=== PATIENT | female | born 1975 | race Caucasian/White ===

== ENCOUNTER 2016-03-25 20:16 | Emergency (ER) | payer BC, OTHER ==
[~2016-03-25] VITALS: Ht 167.6 cm; Wt 86.4 kg
[~2016-03-25 20:16] MED LIST: ADIPEX-P37.5 M1 PO; ADIPEX-P37.5 MG; AMBIEN 5MG TABLE5 MG PO; BELVIQ; CALCIUM 500500 M2 PO; CYMBALTA 30MG30 MG PO; CYMBALTA 60MG60 MG PO; DIAST10; ENDOMETRIN100 MG; EPI-PEN1 MG/ML MR; ESTRACE2 MG PO; ESTROGEN COMPOUND; ESTROGEN GEL TOP; FASTIN30 MG PO; FETZIMA PO; FIORICET 325 MG1 TA1 PO; FLEXERIL10 MG PO; GLUCOPHAGE1000 MG PO; GLUCOPHAGE500 MG/TAB PO; IBREN600 MG PO; KELP PO; LAMICTAL 100MG100 MG PO; LAMICTAL150 MG PO; LAMICTAL200 MG PO; LEXAPRO 10MG10 MG PO; LINZESS145CAP PO; LORTAB 5/500 501 TAB PO; MOTRIN 600600 MG/TAB PO; NEXIUM 40MG40 MG PO; NO HOME MEDICATIONS; NORCO 325 MG-7.1 TAB PO; PENTASA PO; PEPCID 20MG TAB20 MG PO; PERCOCET 325 MG1 TA2 PO; PHENERGAN 25 TA25 MG PO; PHENERGAN25 MG RC; PREDNISONE20 MG PO; PREMARIN 1.251.25 MG PO; PREVPAC; PRIL40; PROVERA 10MG10 MG PO; TOPAMAX 25MG25 M1 PO; TOPAMAX50 MG; VALIUM 10MG10 MG/TAB PO; VITAMIN D1000 IU PO; ZOFRAN ODT4 MG PO; [UNRECOGNIZED DRUG - SUPPLY] PO
[2016-03-25] MEDS ORDERED: AMBIEN 10MG10 MG PO (20:30)
[2016-03-25] MEDS ORDERED: REXULTI2 MG PO (20:30)
[2016-03-25 20:42] LABS: BASO # 0.1 (0.0-0.2); BASO % 0.4 % (0.0-2.0); EOS # 0.2 (0.0-0.7); EOS % 1.8 % (0-4.0); GRAN # 7.1 (1.4-6.5); GRAN % 63.4 % (42.2-75.2); HEMATOCRIT 37.2 % (37.0-47.0); HEMOGLOBIN 12.1 g/dl (12.5-16.0); LYMPH # 3.3 (1.2-3.4); LYMPH % 29.7 % (20.0-51.0); MEAN CELL VOLUME 90 fl (80.0-100.0); MEAN CORPUSCULAR HEMOGLOBIN 29 pg (27.0-31.0); MEAN CORPUSCULAR HGB CONC 33 g/dl (33.0-37.0); MEAN PLATELET VOLUME 8.8 fl (7.4-10.4); MONO # 0.5 (0.1-0.6); MONO % 4.4 % (1.7-9.3); PLATELET COUNT 420 K/mm3 (130-400); RED BLOOD COUNT 4.14 M/mm3 (4.10-5.30); REDCELL DISTRIBUTION WIDTH-CV 14.3 % (11.5-14.5); WHITE BLOOD COUNT 11.2 K/mm3 (4.8-10.8)
[2016-03-25 20:52] LABS: ADJUSTED CALCIUM 9.4 mg/dL (8.4-10.2); ALANINE AMINOTRANSFERASE 58 U/L (9-52); ALBUMIN 4.5 gm/dL (3.5-5.0); ALKALINE PHOSPHATASE 85 U/L (50-136); ANION GAP 16 mmol/L (7-16); BILIRUBIN,TOTAL 0.6 mg/dL (0.0-1.0); BLOOD UREA NITROGEN 13 mg/dL (7-17); CALCIUM 9.8 mg/dL (8.4-10.2); CARBON DIOXIDE 24 mmol/L (22-30); CHLORIDE 101 mmol/L (98-107); CREATININE, serum 0.72 mg/dL (0.52-1.25); GLUCOSE 150 mg/dL (74-106); INR 1.1 (0.8-3.0); POTASSIUM 3.7 mmol/L (3.4-5.0); PROTHROMBIN TIME 12.6 SECONDS (9.7-12.8); SODIUM 141 mmol/L (137-145); TOTAL PROTEIN 7.6 gm/dL (6.4-8.2)
[2016-03-25 20:55] LABS: PARTIAL THROMBOPLASTIN TIME 31.2 SECONDS (26.0-37.0)
[2016-03-25 21:06] LABS: TROPONIN-I < 0.012 ng/mL (0.000-0.034)
[2016-03-25 22:39] VITALS: BP 119/75; PULSE 69; TEMP 96.9
== END 2016-03-25 22:39 | disposition home or self-care (01) ==
LOC: COL.ER 20:16
PROVIDERS: Family Medicine
DX: R07.89 Other chest pain (principal); Z82.49 Family history of ischemic heart disease and other diseases of the circulatory system
CPT/HCPCS: J1885

== ENCOUNTER → 2016-05-11 | Outpatient (CLI) | payer BC, OTHER ==
[~2016-05-11] MED LIST changes: +AMBIEN 10MG10 MG PO; +REXULTI2 MG PO
== END ==
LOC: BHSO 15:49
DX: F41.1 Generalized anxiety disorder (principal)

== ENCOUNTER → 2016-07-30 | Outpatient (CLI) | payer BC | LOC: BHSO 12:52 | DX: F31.73 Bipolar disorder, in partial remission, most recent episode manic (principal) ==

== ENCOUNTER → 2017-01-05 | Outpatient (CLI) | payer BC, OTHER | LOC: BHSO 14:43 | DX: F41.1 Generalized anxiety disorder (principal) ==

== ENCOUNTER 2017-02-01 07:43 | Observation (INO) | payer BC ==
[2017-02-01] VITALS (8 sets, daily range): BP systolic 105–134; BP diastolic 52–80; PULSE 78–90; TEMP 97.7–98.8
[~2017-02-01] VITALS: Ht 167.6 cm; Wt 97.2 kg
[~2017-02-01 07:43] MED LIST changes: +CARAFATE 1GM1 G PO; +NORCO 325 MG-51 TAB PO
[2017-02-01] MEDS ORDERED: WELLBUTRIN 75MG75 MG PO (08:25)
[2017-02-01] MEDS ORDERED: TRULICITY0.75 MG/0. SQ (08:26)
[2017-02-01] MEDS ORDERED: PERCOCET 325 MG1 TA2 PO (11:27)
[2017-02-01] MEDS ORDERED: MOTRIN 600600 MG/TAB PO (11:28)
[2017-02-01] MEDS ORDERED: COLACE 100100 MG/CAP PO (11:28)
== END 2017-02-01 19:58 | disposition home or self-care (01) ==
LOC: SDCO 07:43 → SURG 17:00
DX: K76.0 Fatty (change of) liver, not elsewhere classified (principal); K82.8 Other specified diseases of gallbladder; E78.00 Pure hypercholesterolemia, unspecified; E11.9 Type 2 diabetes mellitus without complications; G47.33 Obstructive sleep apnea (adult) (pediatric); K21.9 Gastro-esophageal reflux disease without esophagitis; G43.909 Migraine, unspecified, not intractable, without status migrainosus; F32.9 Major depressive disorder, single episode, unspecified; F41.9 Anxiety disorder, unspecified; F43.10 Post-traumatic stress disorder, unspecified; Z90.712 Acquired absence of cervix with remaining uterus; Z90.722 Acquired absence of ovaries, bilateral; Z83.3 Family history of diabetes mellitus; Z82.49 Family history of ischemic heart disease and other diseases of the circulatory system
CPT/HCPCS: G0378; G0379; J0690; J1100; J1885; J2405; J2550; J2704; J2710; J3010; J7030; Q9967

== ENCOUNTER → 2017-02-24 | Outpatient (CLI) | payer BC ==
[~2017-02-24] MED LIST changes: +COLACE 100100 MG/CAP PO; +TRULICITY0.75 MG/0. SQ; +WELLBUTRIN 75MG75 MG PO
== END ==
LOC: BHSO 15:49
DX: F41.1 Generalized anxiety disorder (principal)

== ENCOUNTER 2017-07-05 19:55 | Emergency (ER) | payer BC ==
[~2017-07-05] VITALS: Ht 167.6 cm; Wt 87.7 kg
[2017-07-05 20:08] VITALS: TEMP 99.2
[2017-07-05 20:42] VITALS: BP 126/87; PULSE 84
== END 2017-07-05 21:12 | disposition home or self-care (01) ==
LOC: COL.ER 19:55
DX: R04.0 Epistaxis (principal); F32.9 Major depressive disorder, single episode, unspecified

== ENCOUNTER 2018-01-24 18:55 | Emergency (ER) | payer BC ==
[2018-01-25] MEDS ORDERED: ZOFRAN ODT4 MG PO (21:02)
== END 2018-01-24 19:17 | disposition left against medical advice (07) ==
LOC: COL.ER 18:55
DX: Z72.9 Problem related to lifestyle, unspecified (principal)

== ENCOUNTER 2018-01-25 18:12 | Emergency (ER) | payer BC ==
[~2018-01-25] VITALS: Ht 167.6 cm; Wt 79.5 kg
[2018-01-25 18:22] VITALS: TEMP 98.1
[2018-01-25 19:12] LABS: BASO % 0.1 % (0.0-2.0); EOS # 0.2 (0.0-0.7); EOS % 1.6 % (0-4.0); GRAN % 73.3 % (42.2-75.2); HEMOGLOBIN 14.7 g/dl (12.5-16.0); LYMPH # 2.5 (1.2-3.4); LYMPH % 18.3 % (20.0-51.0); MEAN CELL VOLUME 89 fl (80.0-100.0); MEAN CORPUSCULAR HEMOGLOBIN 30 pg (27.0-31.0); MEAN CORPUSCULAR HGB CONC 33 g/dl (33.0-37.0); MEAN PLATELET VOLUME 8.4 fl (7.4-10.4); MONO # 0.9 (0.1-0.6); MONO % 6.2 % (1.7-9.3); PLATELET COUNT 530 K/mm3 (130-400); RED BLOOD COUNT 4.96 M/mm3 (4.10-5.30); REDCELL DISTRIBUTION WIDTH-CV 13.3 % (11.5-14.5)
[2018-01-25 19:24] LABS: ALBUMIN 4.6 gm/dL (3.5-5.0); BILIRUBIN,TOTAL 0.5 mg/dL (0.0-1.0); C-REACTIVE PROTEIN 2.8 mg/dL (0.0-0.9); CREATININE, serum 0.76 mg/dL (0.52-1.25); POTASSIUM 3.3 mmol/L (3.4-5.0); TOTAL PROTEIN 7.6 gm/dL (6.4-8.2)
[2018-01-25 19:39] LABS: COLLECTION METHOD CLEAN CATCH
[2018-01-25 19:51] LABS: PH 6 (5-8); SQUAMOUS EPITHELIAL 0-2 /hpf; URINE APPEARANCE Hazy; URINE BACTERIA Rare /hpf; URINE BILIRUBIN Negative (NEGATIVE); URINE BLOOD Negative (NEGATIVE); URINE COLOR Yellow; URINE GLUCOSE Negative (NEGATIVE); URINE KETONE Negative (NEGATIVE); URINE LEUKOCYTE ESTERASE Negative (NEGATIVE); URINE NITRATE Negative (NEGATIVE); URINE PROTEIN(semi-quant) Negative (NEGATIVE); URINE RBC 0-2 /hpf; URINE UROBILINOGEN Negative (NEGATIVE)
[2018-01-25] MEDS ORDERED: ZOFRAN ODT4 MG PO (21:02)
[2018-01-25 21:16] VITALS: BP 118/82; PULSE 94
== END 2018-01-25 21:23 | disposition home or self-care (01) ==
LOC: COL.ER 18:12
PROVIDERS: Physician Assistant
DX: R10.11 Right upper quadrant pain (principal); R11.2 Nausea with vomiting, unspecified; R19.7 Diarrhea, unspecified; E11.9 Type 2 diabetes mellitus without complications; Z90.49 Acquired absence of other specified parts of digestive tract; K58.9 Irritable bowel syndrome, unspecified
CPT/HCPCS: J1885; J2405; J7030; Q9967

== ENCOUNTER → 2018-01-26 | Outpatient (CLI) | payer BC ==
[~2018-01-26] MED LIST changes: +PRILOSEC 20MG20 MG PO
== END ==
LOC: COL.LAB 20:20
DX: Z01.89 Encounter for other specified special examinations (principal)

== ENCOUNTER 2018-02-01 00:16 | Emergency (ER) | payer BC ==
[~2018-02-01] VITALS: Ht 167.6 cm; Wt 77.3 kg
[~2018-02-01 00:16] MED LIST changes: -PRILOSEC 20MG20 MG PO
[2018-02-01 00:19] VITALS: TEMP 97.4
[2018-02-01 00:43] LABS: BASO # 0.1 (0.0-0.2); BASO % 0.5 % (0.0-2.0); EOS % 6.2 % (0-4.0); GRAN # 11.4 (1.4-6.5); HEMATOCRIT 44.3 % (37.0-47.0); LYMPH % 18.2 % (20.0-51.0); MEAN CELL VOLUME 89 fl (80.0-100.0); MEAN CORPUSCULAR HEMOGLOBIN 30 pg (27.0-31.0); MEAN CORPUSCULAR HGB CONC 34 g/dl (33.0-37.0); MEAN PLATELET VOLUME 8.6 fl (7.4-10.4); MONO # 0.8 (0.1-0.6); MONO % 4.8 % (1.7-9.3); PLATELET COUNT 530 K/mm3 (130-400); REDCELL DISTRIBUTION WIDTH-CV 13.2 % (11.5-14.5)
[2018-02-01 00:54] LABS: ALBUMIN 4.7 gm/dL (3.5-5.0); BILIRUBIN,TOTAL 0.4 mg/dL (0.0-1.0); CALCIUM 9.9 mg/dL (8.4-10.2); CREATININE, serum 0.81 mg/dL (0.52-1.25); POTASSIUM 4.5 mmol/L (3.4-5.0); TOTAL PROTEIN 7.8 gm/dL (6.4-8.2)
[2018-02-01] MEDS ORDERED: PRILOSEC 20MG20 MG PO (01:56)
[2018-02-01] MEDS ORDERED: ZOFRAN ODT4 MG PO (01:56)
[2018-02-01 02:55] VITALS: BP 142/98; PULSE 88
== END 2018-02-01 02:55 | disposition home or self-care (01) ==
LOC: COL.ER 00:16
PROVIDERS: Physician Assistant
DX: K21.9 Gastro-esophageal reflux disease without esophagitis (principal); K50.90 Crohn's disease, unspecified, without complications; D72.1 Eosinophilia; Z98.890 Other specified postprocedural states
CPT/HCPCS: J2270; J2405; J2550; J7030; Q9967

== ENCOUNTER → 2018-03-02 | Outpatient (CLI) | payer BC ==
[~2018-03-02] MED LIST changes: +PRILOSEC 20MG20 MG PO
== END ==
LOC: COL.RAD 07:08
DX: K21.9 Gastro-esophageal reflux disease without esophagitis (principal); A04.8 Other specified bacterial intestinal infections
CPT/HCPCS: A9541

== ENCOUNTER 2018-03-22 11:03 | Emergency (ER) | payer BC ==
[~2018-03-22] VITALS: Ht 167.6 cm; Wt 79.5 kg
[2018-03-22 11:11] VITALS: BP 114/60; TEMP 97.4
[2018-03-22 12:32] VITALS: PULSE 74
== END 2018-03-22 12:33 | disposition home or self-care (01) ==
LOC: COL.ER 11:03
DX: G43.909 Migraine, unspecified, not intractable, without status migrainosus (principal); F41.9 Anxiety disorder, unspecified; Z90.49 Acquired absence of other specified parts of digestive tract; Z90.710 Acquired absence of both cervix and uterus; Z98.890 Other specified postprocedural states; Z98.51 Tubal ligation status
CPT/HCPCS: J1200; J1885; J2765; J7030

== ENCOUNTER 2019-04-09 09:01 | Outpatient (CLI) | payer BC ==
[2019-04-09] VITALS (8 sets, daily range): BP systolic 108–122; BP diastolic 62–81; PULSE 66–82
[~2019-04-09] VITALS: Ht 167.6 cm; Wt 81.2 kg
[~2019-04-09 09:01] MED LIST changes: +CRESTOR 10MG10 MG PO; +TRULICITY1.5 MG/0.5 SQ; +VITAMIN D31000 IU PO; +WELLBUTRIN XL300 M1 PO
--- NOTE | 2019-04-09 12:25 | NUR ---
Discharge instructions gien to pt.Pt verbalizes understanding.Pt escorted out by this nurse.
[2019-04-09 12:58] LABS: GLUCOSE,CSF 63 mg/dL (40-70); TOTAL PROTEIN,CSF 37 mg/dL (15-45)
[2019-04-09 13:08] LABS: CSF APPEARANCE CLEAR; CSF COLOR COLORLESS
[2019-04-09 13:09] LABS: CSF MONONUCLEAR 100 % (70-100); CSF POLYMORPHONUCLEAR 0 % (0-6); CSF RBC 2 /mm3 (0-0)
== END 2019-04-09 13:44 | disposition home or self-care (01) ==
LOC: COL.RAD 09:01
PROVIDERS: Psychiatry & Neurology Neurology
DX: G37.9 Demyelinating disease of central nervous system, unspecified (principal); R93.89 Abnormal findings on diagnostic imaging of other specified body structures

== ENCOUNTER → 2019-04-11 | Emergency (ER) | payer BC ==
[~2019-04-11] VITALS: Ht 167.6 cm; Wt 81.8 kg
[2019-04-11 20:11] VITALS: BP 114/55; PULSE 88; TEMP 98.3
== END ==
LOC: COL.ER 19:19
DX: R51 Headache (principal); R11.0 Nausea

== ENCOUNTER 2019-04-18 18:31 | Emergency (ER) | payer BC ==
[~2019-04-18] VITALS: Ht 167.6 cm; Wt 81.8 kg
[2019-04-18 18:39] VITALS: TEMP 98.6
[2019-04-18 19:18] LABS: BASO % 0.5 % (0.0-2.0); EOS # 0.3 (0.0-0.7); GRAN # 5.2 (1.4-6.5); GRAN % 60.2 % (42.2-75.2); HEMATOCRIT 37.1 % (37.0-47.0); HEMOGLOBIN 12.3 g/dl (12.5-16.0); LYMPH # 2.6 (1.2-3.4); LYMPH % 29.9 % (20.0-51.0); MEAN CELL VOLUME 89 fl (80.0-100.0); MEAN CORPUSCULAR HEMOGLOBIN 29 pg (27.0-31.0); MEAN CORPUSCULAR HGB CONC 33 g/dl (33.0-37.0); MEAN PLATELET VOLUME 8.9 fl (7.4-10.4); MONO # 0.5 (0.1-0.6); MONO % 6.2 % (1.7-9.3); PLATELET COUNT 363 K/mm3 (130-400); RED BLOOD COUNT 4.18 M/mm3 (4.10-5.30); REDCELL DISTRIBUTION WIDTH-CV 12.3 % (11.5-14.5)
[2019-04-18 19:35] LABS: ALBUMIN 4.7 gm/dL (3.5-5.0); BILIRUBIN,TOTAL 0.3 mg/dL (0.0-1.0); C-REACTIVE PROTEIN 1.3 mg/dL (0.0-0.9); CALCIUM 9.4 mg/dL (8.4-10.2); CREATININE, serum 0.77 (0.52-1.25); POTASSIUM 3.7 mmol/L (3.4-5.0); TOTAL PROTEIN 7.3 gm/dL (6.4-8.2)
[2019-04-18 20:19] LABS: COLLECTION METHOD CLEAN CATCH
[2019-04-18 20:25] LABS: PH 5 (5-8); SQUAMOUS EPITHELIAL 0-2 /hpf; URINE APPEARANCE Clear; URINE BACTERIA Rare /hpf; URINE BILIRUBIN Negative (NEGATIVE); URINE BLOOD 1+ (NEGATIVE); URINE COLOR Straw; URINE GLUCOSE Negative (NEGATIVE); URINE KETONE Negative (NEGATIVE); URINE LEUKOCYTE ESTERASE Trace (NEGATIVE); URINE NITRATE Negative (NEGATIVE); URINE PROTEIN(semi-quant) Negative (NEGATIVE); URINE RBC 0-2 /hpf; URINE UROBILINOGEN Negative (NEGATIVE)
[2019-04-18] MEDS ORDERED: CEFTIN500 MG PO (21:20)
[2019-04-18 21:22] VITALS: BP 113/98; PULSE 83
== END 2019-04-18 21:30 | disposition home or self-care (01) ==
LOC: COL.ER 18:31
PROVIDERS: Emergency Medicine
DX: M54.5 Low back pain (principal); N39.0 Urinary tract infection, site not specified; E11.9 Type 2 diabetes mellitus without complications; K50.90 Crohn's disease, unspecified, without complications; Z90.710 Acquired absence of both cervix and uterus; Z98.890 Other specified postprocedural states; Z90.89 Acquired absence of other organs; Z79.84 Long term (current) use of oral hypoglycemic drugs
CPT/HCPCS: J1885; J7030

== ENCOUNTER 2019-10-15 15:17 | Emergency (ER) | payer BC ==
[~2019-10-15] VITALS: Ht 167.6 cm; Wt 88.6 kg
[~2019-10-15 15:17] MED LIST changes: +CEFTIN500 MG PO
[2019-10-15 15:23] VITALS: TEMP 97.9
[2019-10-15 16:25] LABS: BASO # 0.1 (0.0-0.2); BASO % 0.6 % (0.0-2.0); EOS # 0.1 (0.0-0.7); EOS % 1.4 % (0-4.0); GRAN # 6.7 (1.4-6.5); GRAN % 67.1 % (42.2-75.2); HEMATOCRIT 41.4 % (37.0-47.0); HEMOGLOBIN 13.4 g/dl (12.5-16.0); LYMPH # 2.4 (1.2-3.4); LYMPH % 23.9 % (20.0-51.0); MEAN CELL VOLUME 90 fl (80.0-100.0); MEAN CORPUSCULAR HEMOGLOBIN 29 pg (27.0-31.0); MEAN CORPUSCULAR HGB CONC 32 g/dl (33.0-37.0); MEAN PLATELET VOLUME 8.8 fl (7.4-10.4); MONO # 0.7 (0.1-0.6); MONO % 6.7 % (1.7-9.3); PLATELET COUNT 400 K/mm3 (130-400); RED BLOOD COUNT 4.58 M/mm3 (4.10-5.30); REDCELL DISTRIBUTION WIDTH-CV 13.2 % (11.5-14.5)
[2019-10-15 16:35] LABS: ALANINE AMINOTRANSFERASE 19 U/L (4-34); ALBUMIN 4.7 gm/dL (3.5-5.0); ALKALINE PHOSPHATASE 86 U/L (50-136); ANION GAP 11 mmol/L (7-16); AST,SGOT 22 U/L (15-37); BILIRUBIN,TOTAL 0.6 mg/dL (0.0-1.0); BLOOD UREA NITROGEN 19 mg/dL (7-17); C-REACTIVE PROTEIN 1.3 mg/dL (0.0-0.9); CARBON DIOXIDE 24 mmol/L (22-30); CHLORIDE 101 mmol/L (98-107); CREATINE KINASE 46 U/L (30-135); CREATININE, serum 0.83 (0.52-1.25); GLUCOSE 94 mg/dL (74-106); POTASSIUM 4.2 mmol/L (3.4-5.0); SODIUM 135 mmol/L (137-145); TOTAL PROTEIN 7.8 gm/dL (6.4-8.2)
[2019-10-15 16:44] LABS: TROPONIN-I < 0.012 ng/mL (0.000-0.035)
[2019-10-15 16:50] LABS: ERYTHROCYTE SEDIMENTATION RATE 13 mm/hr (0-20)
[2019-10-15 18:32] LABS: COLLECTION METHOD CLEAN CATCH
[2019-10-15 18:39] LABS: PH 6 (5-8); SQUAMOUS EPITHELIAL 0-2 /hpf; URINE APPEARANCE Clear; URINE BACTERIA None Seen /hpf; URINE BILIRUBIN Negative (NEGATIVE); URINE BLOOD Negative (NEGATIVE); URINE COLOR Straw; URINE GLUCOSE Negative (NEGATIVE); URINE KETONE Negative (NEGATIVE); URINE LEUKOCYTE ESTERASE Negative (NEGATIVE); URINE NITRATE Negative (NEGATIVE); URINE PROTEIN(semi-quant) Negative (NEGATIVE); URINE RBC 0-2 /hpf; URINE UROBILINOGEN Negative (NEGATIVE)
[2019-10-15 19:36] VITALS: BP 123/65; PULSE 81
== END 2019-10-15 19:36 | disposition home or self-care (01) ==
LOC: COL.ER 15:17
PROVIDERS: Emergency Medicine
DX: R53.1 Weakness (principal); M79.10 Myalgia, unspecified site; G35 Multiple sclerosis
CPT/HCPCS: J7030

== ENCOUNTER → 2020-03-31 | Outpatient (CLI) | payer BC ==
[~2020-03-31] MED LIST changes: +ADDERALL20 MG PO; +FLEXERIL 1010 MG/TAB PO; +MEDROL 4MG DOSPA4 MG PO; +NEURONTIN300 MG/CAP PO
== END ==
LOC: COL.RAD 08:20
DX: M25.551 Pain in right hip (principal)
CPT/HCPCS: A9585; J3301; Q9967

== ENCOUNTER 2020-04-26 06:10 | Emergency (ER) | payer BC ==
[~2020-04-26] VITALS: Ht 167.6 cm; Wt 90.9 kg
[2020-04-26 06:15] VITALS: TEMP 98.1
[2020-04-26 07:23] VITALS: BP 130/75; PULSE 76
== END 2020-04-26 07:23 | disposition home or self-care (01) ==
LOC: COL.ER 06:10
DX: G43.909 Migraine, unspecified, not intractable, without status migrainosus (principal); Z88.2 Allergy status to sulfonamides; Z88.8 Allergy status to other drugs, medicaments and biological substances
CPT/HCPCS: J1885

== ENCOUNTER 2020-09-18 17:19 | Observation (INO) | payer BC ==
[~2020-09-18] VITALS: Ht 167.6 cm; Wt 90.9 kg
[2020-09-18 17:30] VITALS: TEMP 97.8
[2020-09-18 18:32] LABS: BASO # 0.1 (0.0-0.2); BASO % 0.8 % (0.0-2.0); EOS # 0.2 (0.0-0.7); EOS % 1.7 % (0-4.0); GRAN # 6.7 (1.4-6.5); GRAN % 64.4 % (42.2-75.2); HEMATOCRIT 41.2 % (37.0-47.0); HEMOGLOBIN 13.5 g/dl (12.5-16.0); LYMPH # 2.8 (1.2-3.4); LYMPH % 26.6 % (20.0-51.0); MEAN CELL VOLUME 88 fl (80.0-100.0); MEAN CORPUSCULAR HEMOGLOBIN 29 pg (27.0-31.0); MEAN CORPUSCULAR HGB CONC 33 g/dl (33.0-37.0); MEAN PLATELET VOLUME 8.8 fl (7.4-10.4); MONO # 0.6 (0.1-0.6); MONO % 6.1 % (1.7-9.3); PLATELET COUNT 473 K/mm3 (130-400); RED BLOOD COUNT 4.67 M/mm3 (4.10-5.30); REDCELL DISTRIBUTION WIDTH-CV 13.2 % (11.5-14.5)
[2020-09-18 18:37] LABS: ALBUMIN 4.7 gm/dL (3.5-5.0); BILIRUBIN,TOTAL 0.4 mg/dL (0.0-1.0); C-REACTIVE PROTEIN 2.8 mg/dL (0.0-0.9); CALCIUM 10.2 mg/dL (8.4-10.2); CREATININE, serum 0.64 (0.52-1.25); POTASSIUM 3.9 mmol/L (3.4-5.0)
[2020-09-18 19:29] LABS: COLLECTION METHOD CLEAN CATCH
[2020-09-18 19:41] LABS: MUCOUS Present /lpf; PH 5 (5-8); URINE APPEARANCE Hazy; URINE BACTERIA Occasional /hpf; URINE BILIRUBIN Negative (NEGATIVE); URINE BLOOD Negative (NEGATIVE); URINE COLOR Yellow; URINE GLUCOSE Negative (NEGATIVE); URINE KETONE Negative (NEGATIVE); URINE LEUKOCYTE ESTERASE Trace (NEGATIVE); URINE NITRATE Negative (NEGATIVE); URINE PROTEIN(semi-quant) Negative (NEGATIVE); URINE RBC 0-2 /hpf; URINE UROBILINOGEN Negative (NEGATIVE)
[2020-09-19 11:46] VITALS: BP 122/85; PULSE 84
[2020-09-19] MEDS ORDERED: CRESTOR20 MG PO (12:55)
--- NOTE | 2020-09-19 13:00 | NUR ---
Patient admitted from the ED for SOA/CHF. Upon coming to the floor, patient was placed in precautions for possible COVID. RVP recieved. Dr. Centeno assessed patient and deemed her fit for discharge. RVP came back negative. Discharge paperwork completed. Upon entering the room, patient stated that she was uncomfortable going home. She stated that she was having difficulty swallowing and was still having chest pain. VSS and patient was running NS rythm. LAURENCE Velasquez notified. Eva visited with patient, answered all questions and concerns. Discharge instruction/education given. IV DC'd catheter intact, no signs of phlebitis. Patient denies any further questions, concerns, or needs at this time. Patient escorted from building by [facility] staff. Admission paperwork not completed due to immediate discharge orders from doctor.
[2020-09-19 13:24] LABS: BASO # 0.1 (0.0-0.2); BASO % 0.6 % (0.0-2.0); EOS # 0.2 (0.0-0.7); EOS % 1.8 % (0-4.0); GRAN # 7.3 (1.4-6.5); GRAN % 68.9 % (42.2-75.2); HEMATOCRIT 42.9 % (37.0-47.0); HEMOGLOBIN 14.2 g/dl (12.5-16.0); LYMPH # 2.3 (1.2-3.4); LYMPH % 21.4 % (20.0-51.0); MEAN CELL VOLUME 89 fl (80.0-100.0); MEAN CORPUSCULAR HEMOGLOBIN 30 pg (27.0-31.0); MEAN CORPUSCULAR HGB CONC 33 g/dl (33.0-37.0); MEAN PLATELET VOLUME 8.9 fl (7.4-10.4); MONO # 0.7 (0.1-0.6); MONO % 6.9 % (1.7-9.3); PLATELET COUNT 474 K/mm3 (130-400); RED BLOOD COUNT 4.82 M/mm3 (4.10-5.30); REDCELL DISTRIBUTION WIDTH-CV 13.2 % (11.5-14.5)
[2020-09-19 13:35] LABS: ANION GAP 12 mmol/L (7-16); BLOOD UREA NITROGEN 13 mg/dL (7-17); CALCIUM 10.1 mg/dL (8.4-10.2); CARBON DIOXIDE 24 mmol/L (22-30); CHLORIDE 103 mmol/L (98-107); CREATININE, serum 0.65 (0.52-1.25); GLUCOSE 124 mg/dL (74-106); POTASSIUM 3.4 mmol/L (3.4-5.0); SODIUM 139 mmol/L (137-145)
[2020-09-19 13:41] LABS: MAGNESIUM 1.9 mg/dL (1.6-2.3)
[2020-09-19 13:48] LABS: TROPONIN-I < 0.012 ng/mL (0.000-0.035)
== END 2020-09-19 16:00 | disposition home or self-care (01) ==
LOC: COL.ER 17:19 → MEDICAL 09-19 01:24
PROVIDERS: Nurse Practitioner; Physician Assistant; ADMIT Internal Medicine
DX: R53.83 Other fatigue (principal); R43.9 Unspecified disturbances of smell and taste; I50.9 Heart failure, unspecified; E78.5 Hyperlipidemia, unspecified; E11.9 Type 2 diabetes mellitus without complications; F32.9 Major depressive disorder, single episode, unspecified; K21.9 Gastro-esophageal reflux disease without esophagitis; K76.0 Fatty (change of) liver, not elsewhere classified; Z20.822 Contact with and (suspected) exposure to COVID-19; K50.90 Crohn's disease, unspecified, without complications; K59.00 Constipation, unspecified; F98.8 Other specified behavioral and emotional disorders with onset usually occurring in childhood and adolescence; Z79.899 Other long term (current) drug therapy
CPT/HCPCS: G0378; J1650; J1940; J7030; Q9967

== ENCOUNTER 2021-02-26 18:40 | Emergency (ER) | payer BC ==
[~2021-02-26] VITALS: Ht 167.6 cm; Wt 95.5 kg
[~2021-02-26 18:40] MED LIST changes: +CRESTOR20 MG PO
[2021-02-26 21:06] LABS: BASO # 0.1 K/mm3 (0.0-0.2); BASO % 0.5 % (0.0-2.0); EOS # 0.1 K/mm3 (0.0-0.7); EOS % 1.1 % (0.0-4.0); GRAN # 7.9 K/mm3 (1.4-6.5); GRAN % 71.6 % (42.2-75.2); HEMATOCRIT 42.3 % (37.0-47.0); HEMOGLOBIN 14.1 g/dl (12.5-16.0); LYMPH # 2.2 K/mm3 (1.2-3.4); LYMPH % 20.1 % (20.0-51.0); MEAN CELL VOLUME 88 fl (80.0-100.0); MEAN CORPUSCULAR HEMOGLOBIN 29 pg (27-31); MEAN CORPUSCULAR HGB CONC 33 g/dl (33.0-37.0); MEAN PLATELET VOLUME 8.6 fl (7.4-10.4); MONO # 0.7 K/mm3 (0.1-0.6); MONO % 6.4 % (1.7-9.3); PLATELET COUNT 430 K/mm3 (130-400); RED BLOOD COUNT 4.82 M/mm3 (4.10-5.30); REDCELL DISTRIBUTION WIDTH-CV 13.4 % (11.5-14.5)
[2021-02-26 21:20] LABS: ALBUMIN 3.8 gm/dL (3.5-5.0); BILIRUBIN,TOTAL 0.3 mg/dL (0.2-1.2); CALCIUM 9.4 mg/dL (8.4-10.2); CREATININE, serum 0.74 mg/dL (0.57-1.11); POTASSIUM 4.1 mmol/L (3.5-4.5); TOTAL PROTEIN 7.1 gm/dL (6.2-8.1)
[2021-02-27 00:32] VITALS: BP 152/89; PULSE 85; TEMP 98.7
== END 2021-02-27 00:32 | disposition home or self-care (01) ==
LOC: COL.ER 18:40
PROVIDERS: Student in an Organized Health Care Education/Training Program
DX: U07.1 COVID-19 (principal); E11.9 Type 2 diabetes mellitus without complications; Z79.84 Long term (current) use of oral hypoglycemic drugs
CPT/HCPCS: J2270; M0243; Q0244

== ENCOUNTER 2021-02-27 11:20 | Emergency (ER) | payer BC ==
[~2021-02-27] VITALS: Ht 167.6 cm; Wt 90.9 kg
[2021-02-27 11:28] VITALS: BP 140/102; PULSE 91; TEMP 97.7
[2021-02-27 12:17] LABS: BASO % 0.4 % (0.0-2.0); EOS # 0.1 K/mm3 (0.0-0.7); EOS % 1.1 % (0.0-4.0); GRAN # 6.9 K/mm3 (1.4-6.5); GRAN % 72.4 % (42.2-75.2); HEMATOCRIT 39.2 % (37.0-47.0); LYMPH # 1.8 K/mm3 (1.2-3.4); LYMPH % 19.3 % (20.0-51.0); MEAN CELL VOLUME 86 fl (80.0-100.0); MEAN CORPUSCULAR HEMOGLOBIN 29 pg (27-31); MEAN CORPUSCULAR HGB CONC 33 g/dl (33.0-37.0); MEAN PLATELET VOLUME 8.6 fl (7.4-10.4); MONO # 0.6 K/mm3 (0.1-0.6); MONO % 6.6 % (1.7-9.3); PLATELET COUNT 422 K/mm3 (130-400); RED BLOOD COUNT 4.55 M/mm3 (4.10-5.30); REDCELL DISTRIBUTION WIDTH-CV 13.6 % (11.5-14.5)
[2021-02-27 12:33] LABS: ALBUMIN 3.5 gm/dL (3.5-5.0); BILIRUBIN,TOTAL 0.3 mg/dL (0.2-1.2); CALCIUM 9.1 mg/dL (8.4-10.2); CREATININE, serum 0.82 mg/dL (0.57-1.11); POTASSIUM 3.9 mmol/L (3.5-4.5); TOTAL PROTEIN 6.6 gm/dL (6.2-8.1)
== END 2021-02-27 13:04 | disposition home or self-care (01) ==
LOC: COL.ER 11:20
PROVIDERS: Student in an Organized Health Care Education/Training Program
DX: U07.1 COVID-19 (principal); H10.9 Unspecified conjunctivitis; D72.829 Elevated white blood cell count, unspecified; E11.9 Type 2 diabetes mellitus without complications; Z79.84 Long term (current) use of oral hypoglycemic drugs; Z73.0 Burn-out

== ENCOUNTER 2021-03-20 17:01 | Emergency (ER) | payer BC ==
[~2021-03-20] VITALS: Ht 167.6 cm; Wt 97.7 kg
[2021-03-20 17:08] VITALS: TEMP 98
[2021-03-20 18:14] LABS: HEMATOCRIT 37.9 % (37.0-47.0); HEMOGLOBIN 12.2 g/dl (12.5-16.0); MEAN CELL VOLUME 90 fl (80.0-100.0); MEAN CORPUSCULAR HEMOGLOBIN 29 pg (27-31); MEAN CORPUSCULAR HGB CONC 32 g/dl (33.0-37.0); MEAN PLATELET VOLUME 9.3 fl (7.4-10.4); PLATELET COUNT 540 K/mm3 (130-400); RED BLOOD COUNT 4.23 M/mm3 (4.10-5.30); REDCELL DISTRIBUTION WIDTH-CV 13.4 % (11.5-14.5)
[2021-03-20 18:24] LABS: BASO # 0.1 K/mm3 (0.0-0.2); BASO % 0.3 % (0.0-2.0); GRAN # 18.1 K/mm3 (1.4-6.5); GRAN % 87.4 % (42.2-75.2); LYMPH # 1.5 K/mm3 (1.2-3.4); MONO % 4.6 % (1.7-9.3)
[2021-03-20 18:28] LABS: ALBUMIN 4.1 gm/dL (3.5-5.0); BILIRUBIN,TOTAL 0.4 mg/dL (0.2-1.2); CALCIUM 9.6 mg/dL (8.4-10.2); CREATININE, serum 1.2 mg/dL (0.57-1.11); POTASSIUM 4.5 mmol/L (3.5-4.5); TOTAL PROTEIN 7.1 gm/dL (6.2-8.1)
[2021-03-20 20:45] VITALS: BP 133/82; PULSE 112
== END 2021-03-20 22:15 | disposition home or self-care (01) ==
LOC: COL.ER 17:01
PROVIDERS: Student in an Organized Health Care Education/Training Program
DX: L76.22 Postprocedural hemorrhage of skin and subcutaneous tissue following other procedure (principal); E11.9 Type 2 diabetes mellitus without complications; Z79.4 Long term (current) use of insulin; Z98.890 Other specified postprocedural states
CPT/HCPCS: Q9967

== ENCOUNTER 2021-03-21 17:36 | Inpatient (IN) | payer BC ==
[~2021-03-21] VITALS: Ht 165.1 cm; Wt 101.0 kg
[2021-03-21 19:11] LABS: ALBUMIN 3.5 gm/dL (3.5-5.0); BILIRUBIN,TOTAL 0.4 mg/dL (0.2-1.2); CALCIUM 8.3 mg/dL (8.4-10.2); CREATININE, serum 0.73 mg/dL (0.57-1.11); POTASSIUM 4.4 mmol/L (3.5-4.5); TOTAL PROTEIN 6.1 gm/dL (6.2-8.1)
[2021-03-21 19:35] LABS: BASO % 0.3 % (0.0-2.0); EOS # 0.3 K/mm3 (0.0-0.7); EOS % 3.9 % (0.0-4.0); GRAN # 6.8 K/mm3 (1.4-6.5); LYMPH # 0.9 K/mm3 (1.2-3.4); MEAN CELL VOLUME 89 fl (80.0-100.0); MEAN CORPUSCULAR HGB CONC 33 g/dl (33.0-37.0); MONO # 0.5 K/mm3 (0.1-0.6); MONO % 6.1 % (1.7-9.3); RED BLOOD COUNT 2.96 M/mm3 (4.10-5.30); REDCELL DISTRIBUTION WIDTH-CV 13.6 % (11.5-14.5)
[2021-03-21 19:36] LABS: HEMATOCRIT 26.3 % (37.0-47.0); HEMOGLOBIN 8.6 g/dl (12.5-16.0); MEAN CORPUSCULAR HEMOGLOBIN 29 pg (27-31); PLATELET COUNT 314 K/mm3 (130-400)
--- NOTE | 2021-03-21 23:07 | NUR ---
PT ADMITTED TO ROOM 343 PER BED. SEE MAR FOR ULTRAM GIVEN. ICE PACK TO LT HIP. LT HIP SWOLLEN AND BRUISED. CALL LIGHT IN REACH.
[2021-03-21 23:16] VITALS: BP 105/51; PULSE 114; TEMP 101.2
--- NOTE | 2021-03-21 23:41 | NUR ---
O2 STARTED FOR GINETTE.
--- NOTE | 2021-03-22 01:30 | NUR ---
UA OBTAINED. RADIOLOGY HERE FOR XRAY.
--- NOTE | 2021-03-22 01:47 | NUR ---
Vancomycin Initial Dosing Pharmacy Note Ordering provider: Moses Hardin MD Indication/duration: Surgical site infection. Relevant comorbidities: DM LABS: WBC = 8.6, SCr = 0.73, Tmax = 101.2 Recommendation: Will draw troughs and follow levels. Loading dose: 2 grams Maintenance dose: 1.5 grams every 12 hours Trough goal: 10-15 ug/mL
[2021-03-22 02:06] LABS: COLLECTION METHOD CLEAN CATCH
[2021-03-22 02:12] LABS: MUCOUS Present (NOT PRESENT); PH 5 (5-8); SQUAMOUS EPITHELIAL 0-2 /hpf (0-10); URINE APPEARANCE Clear (CLEAR/HAZY); URINE BACTERIA None Seen /hpf (NONE SEEN); URINE BILIRUBIN Negative (NEGATIVE); URINE BLOOD Negative (NEGATIVE); URINE COLOR Yellow (YELLOW); URINE GLUCOSE 3+ (NEGATIVE); URINE KETONE Trace (NEGATIVE); URINE LEUKOCYTE ESTERASE Negative (NEGATIVE); URINE NITRATE Negative (NEGATIVE); URINE PROTEIN(semi-quant) Negative (NEGATIVE); URINE RBC 0-2 /hpf (0-2); URINE UROBILINOGEN Negative (NEGATIVE)
[2021-03-22 03:22] VITALS: BP 99/44; PULSE 96; TEMP 98.7
--- NOTE | 2021-03-22 05:20 | NUR ---
PT HAS RESTED WELL THIS SHIFT. O2 ON FOR GINETTE. LT HIP SHOWS NO INCREASE IN HEMAATOMA. ICE BAG TO LT HIP.
[2021-03-22 07:01] LABS: BASO % 0.1 % (0.0-2.0); EOS # 0.3 K/mm3 (0.0-0.7); EOS % 4.5 % (0.0-4.0); GRAN # 4.7 K/mm3 (1.4-6.5); GRAN % 67.6 % (42.2-75.2); LYMPH # 1.3 K/mm3 (1.2-3.4); LYMPH % 18.6 % (20.0-51.0); MEAN CELL VOLUME 89 fl (80.0-100.0); MEAN CORPUSCULAR HGB CONC 33 g/dl (33.0-37.0); MONO # 0.6 K/mm3 (0.1-0.6); MONO % 8.3 % (1.7-9.3); PLATELET COUNT 296 K/mm3 (130-400); RED BLOOD COUNT 2.79 M/mm3 (4.10-5.30)
[2021-03-22 07:10] LABS: HEMATOCRIT 24.8 % (37.0-47.0); HEMOGLOBIN 8.2 g/dl (12.5-16.0); MEAN CORPUSCULAR HEMOGLOBIN 29 pg (27-31)
[2021-03-22 07:22] LABS: CALCIUM 7.9 mg/dL (8.4-10.2); CREATININE, serum 0.63 mg/dL (0.57-1.11); POTASSIUM 3.5 mmol/L (3.5-4.5)
[2021-03-22 07:57] VITALS: BP 109/42; PULSE 101; TEMP 99.7
--- NOTE | 2021-03-22 08:00 | NUR ---
PATIENT IS A&O. VSS. RATES PAIN IN LEFT HIP AT 6-7. GAVE PRN ULTRAM PER ORDERS WITH AM MEDS. NPO. NO C/O N/V. LEFT HIP IS SWOLLEN WITH LOTS OF ECCYMOSIS NOTED. OCCLUSIVE DRESSING & ICE PACK TO LLE INPLACE. PATIENT REPORTS TENDERNESS WITH AMBULATION IN LLE. PT CONSULTED. HEAD TO TOE ASSESSMENT COMPLETE. CALL LIGHT IN REACH. NO OTHER NEEDS AT TIME. CALL LIGHT IN REACH.
--- NOTE | 2021-03-22 12:03 | NUR ---
Lilia met with the pt who stated her preference to return home once medically stable. the pt lives at home with , nicky [phone]. The pt states she is independent on all ADLs and uses a CPAP. Pt pcp is dr. toscano and gets [facility]. The pt states she has a dpoa-hc. No other needs stated. sw to await further recommendations and follow up as needed. d/c: home w/.
[2021-03-22 12:54] VITALS: BP 123/56; PULSE 96; TEMP 99
--- NOTE | 2021-03-22 14:35 | NUR ---
TALKED WITH ORTHO, NO SURGICAL INTERVENTION PLANNED. GENERAL DIET. NO OTHER NEW ORDERS AT THIS TIME.
[2021-03-22 16:54] VITALS: BP 100/57; PULSE 107; TEMP 99.5
[2021-03-22 19:54] VITALS: BP 103/53; PULSE 100; TEMP 98.5
--- NOTE | 2021-03-22 23:45 | NUR ---
ULTRAM EARLIER FOR LT HIP PAIN AND H/A. AQUACEL TO LT HIP HAS SMALL AMT DRG NOTED. PT HAS NONPRODUCTIVE COUGH AND "SINUS" DRAINAGE. PAST COVID FROM 02/26.
[2021-03-22 23:49] VITALS: BP 106/53; PULSE 92; TEMP 98.4
[2021-03-23 04:19] VITALS: BP 113/55; PULSE 94; TEMP 98.6
--- NOTE | 2021-03-23 05:53 | NUR ---
PT HAD UNEVENTFUL NIGHT. SLEEPING AT THIS ITME. NO FURTHER DRG NOTED TO LA NENA DRSG TO LT HIP
[2021-03-23 07:48] VITALS: BP 115/62; PULSE 93; TEMP 98.6
--- NOTE | 2021-03-23 09:33 | NUR ---
Initial visit; Patient declined spiritual care though thanked [employer] Attendant for stopping.
[2021-03-23] MEDS ORDERED: AMOXICILLIN 8751 TAB PO (09:46)
[2021-03-23] MEDS ORDERED: DOXYCYCLINE HY100 MG PO (09:50)
[2021-03-23 11:37] VITALS: BP 126/56; PULSE 95; TEMP 98.2
--- NOTE | 2021-03-23 16:00 | NUR ---
PATIENT DISCHARGING HOME VIA WC TO PERSONAL VEHICLE WHERE FAMILY IS WAITING. GAVE DISCHARGE INSTRUCTIONS, E-SCRIPTS SENT, DISCUSSED F/U APT. ANSWERED QUESTIONS/CONCERNS. PCT DC'D IV SITE, COVERED WITH GAUZE & COBAN. PATIENT IS PACKED, DRESSED AND DISCHARGED.
== END 2021-03-23 16:00 | disposition home or self-care (01) | DRG 919 ==
LOC: COL.ER 17:36 → SURG 20:39
PROVIDERS: Student in an Organized Health Care Education/Training Program; ADMIT Internal Medicine
DX: L76.32 Postprocedural hematoma of skin and subcutaneous tissue following other procedure (principal); A41.9 Sepsis, unspecified organism; K50.90 Crohn's disease, unspecified, without complications; D62 Acute posthemorrhagic anemia; E11.9 Type 2 diabetes mellitus without complications; E78.5 Hyperlipidemia, unspecified; F32.A Depression, unspecified; F98.8 Other specified behavioral and emotional disorders with onset usually occurring in childhood and adolescence; K21.9 Gastro-esophageal reflux disease without esophagitis; G47.33 Obstructive sleep apnea (adult) (pediatric); Y83.8 Other surgical procedures as the cause of abnormal reaction of the patient, or of later complication, without mention of misadventure at the time of the procedure; Z79.4 Long term (current) use of insulin; Z98.890 Other specified postprocedural states
CPT/HCPCS: 99223-AI; 99233-AI; 99239; J1815; J2543; J3010; J3370; J7030; J7040; J7050; Q9967

== ENCOUNTER → 2021-10-14 | Outpatient (CLI) | payer BC ==
[~2021-10-14] MED LIST changes: +AMOXICILLIN 8751 TAB PO; +DOXYCYCLINE HY100 MG PO
== END ==
LOC: COL.RAD 10:20
DX: M25.552 Pain in left hip (principal)
CPT/HCPCS: J3301; Q9967

== ENCOUNTER → 2021-11-04 | Outpatient (CLI) | payer BC ==
[~2021-11-04] MED LIST changes: +VRAYLAR1.5 MG PO
== END ==
LOC: COL.RAD 12:29
DX: R41.3 Other amnesia (principal)
CPT/HCPCS: A9575

== ENCOUNTER 2021-11-10 13:09 | Outpatient (CLI) | payer BC ==
[~2021-11-10] VITALS: Ht 165.1 cm; Wt 96.7 kg
[~2021-11-10 13:09] MED LIST changes: -VRAYLAR1.5 MG PO
[2021-11-10 13:30] VITALS: BP 131/97; PULSE 81
[2021-11-10] MEDS ORDERED: VRAYLAR1.5 MG PO (13:48)
[2021-11-10 13:53] VITALS: BP 130/88; PULSE 90; TEMP 98.5
[2021-11-10 15:00] VITALS: BP 138/84; PULSE 83
--- NOTE | 2021-11-10 15:00 | NUR ---
Pt to room 15,report from Angella Martins.
[2021-11-10 15:15] VITALS: BP 135/94; PULSE 82
[2021-11-10 15:27] LABS: CSF MONONUCLEAR 100 % (70-100); CSF POLYMORPHONUCLEAR 0 % (0-6); CSF RBC 1000 /mm3 (0-0)
[2021-11-10 15:32] LABS: CSF APPEARANCE CLEAR; CSF COLOR COLORLESS
[2021-11-10 15:45] VITALS: BP 121/72; PULSE 81
[2021-11-10 15:45] LABS: GLUCOSE,CSF 123 mg/dL (40-70); TOTAL PROTEIN,CSF 44 mg/dL (15-45)
--- NOTE | 2021-11-10 16:10 | NUR ---
Discharge instructions given to pt.pt verbalizes understanding.Pt escorted out by this nurse.
[2021-11-13 10:48] LABS: ALBUMIN CSF 24.3 mg/dL (<=27.0)
[2021-11-13 10:53] LABS: CSF IGG/ALBUMIN 0.08 (<=0.21); CSF,IGG 1.9 mg/dL (<=8.1)
[2021-11-13 14:04] LABS: CSF OLIG BD INTERPRETATION 1 bands (<2); SE OLIGOCLONAL BANDING 0 bands (())
[2021-11-17 13:57] LABS: ALBUMUN SERUM 4400 mg/dL (()); CSF SYNTHESIS RATE 3.68 mg/24 h (<=12); IGG,SERUM 421 mg/dL (())
== END 2021-11-10 16:11 ==
LOC: COL.RAD 13:09
PROVIDERS: Psychiatry & Neurology Neurology
DX: R93.0 Abnormal findings on diagnostic imaging of skull and head, not elsewhere classified (principal)